=== PATIENT | female | born 1995 | race Caucasian/White ===

== ENCOUNTER → 2022-03-02 10:20 | Outpatient (CLI) | payer OTHER, SELFPAY ==
--- NOTE | ~2022-03-02 | US_ITS ---
US breast LT limited DATE: 03/02/2022 10:42 INDICATION: Palpable lump in left breast at 1:00 for 2 weeks TECHNIQUE: Real-time imaging and color flow imaging targeted to area of clinical complaint at 1:00 5 cm from nipple COMPARISON: None FINDINGS: 1:00 5 cm from nipple: There are 2 circumscribed hypoechoic lesions, measuring 2.4 x 3 x 2. 7 mm and 3.1 x 1.5 x 2.9 mm, without internal vascularity or posterior shadowing, consistent with chay ign process. No suspicious solid lesion or shadowing. IMPRESSION: BI-RADS 2: Benign Reviewed, dictated and finalized at [facility]. Reviewed, dictated and finalized at [facility]. IMPRESSION: BI-RADS 2: Benign
== END ==
PROVIDERS: PCP Nurse Practitioner Obstetrics & Gynecology; Visit Provider Nurse Practitioner Obstetrics & Gynecology
DX: N63.20 Unspecified lump in the left breast, unspecified quadrant (principal)
CPT/HCPCS: 76642